=== PATIENT | female | born 1945 | race Asian ===

== ENCOUNTER 2018-11-09 07:43 | Day surgery (SDC) | payer MEDICARE, OTHER ==
[2018-11-09] MEDS ORDERED: SOD CHLORIDE 0.9% 1,000 ML IV (08:00)
[2018-11-09] MEDS: MOXIFLOXACIN 0.5% 3 ML OPH OPER (08:24)
[2018-11-09] MEDS: TROPICAMIDE 1% 15 ML OPH OPER (08:24)
[2018-11-09] MEDS: CYCLOPENTOLATE/PHENYLEPH 2 ML OPH OPER (08:24)
[2018-11-09] MEDS: DICLOFENAC 0.1% 2.5 ML OPH OPER (08:25)
[2018-11-09] MEDS: TETRACAINE 0.5% 4 ML OPH LEFT EYE (10:30)
[2018-11-09] MEDS: LIDOCAINE 4% (MPF) 5 ML INJ INJ (10:30)
[2018-11-09] MEDS ORDERED: PROPOFOL 20 ML (10:40)
[2018-11-09] MEDS ORDERED: hydrALAzine 20 MG INJ IV (11:00)
[2018-11-09] MEDS ORDERED: OXYCODONE/ACETAMINOPHEN (5/325) TAB PO ×2 (11:00)
[2018-11-09] MEDS ORDERED: METOCLOPRAMIDE 10 MG INJ IV (11:00)
[2018-11-09] MEDS ORDERED: DIPHENHYDRAMINE 50 MG INJ IV (11:00)
[2018-11-09] MEDS ORDERED: EPHEDrine SULFATE 50 MG/5 ML SYG IV (11:00)
[2018-11-09] MEDS ORDERED: LABETALOL HCL 20MG INJ IV (11:00)
[2018-11-09] MEDS ORDERED: ONDANSETRON 4 MG INJ IV (11:00)
[2018-11-09] MEDS ORDERED: FENTAnyl 50 MCG/ML VIAL IV ×3 (11:00)
[2018-11-09] MEDS ORDERED: MEPERIDINE 25 MG INJ IV (11:00)
[2018-11-09] MEDS ORDERED: MIDAZOLAM 1 MG/ML 2 ML INJ IV (11:00)
[2018-11-09] MEDS: CEFAZOLIN 1 GM INJ INJ (11:01)
[2018-11-09] MEDS ORDERED: LIDOCAINE 4% (MPF) 5 ML INJ (11:24)
[2018-11-09] MEDS ORDERED: TETRACAINE 0.5% 4 ML OPH (11:24)
[2018-11-09] MEDS ORDERED: NA HYALURONATE/CHONDROITIN 0.5 ML SYG (11:24)
[2018-11-09] MEDS ORDERED: CARBACHOL 0.01% 1.5 ML OPH INJ (11:24)
== END 2018-11-09 12:55 | disposition home or self-care (01) ==
LOC: SDS 07:43
DX: H25.12 Age-related nuclear cataract, left eye (principal); I10 Essential (primary) hypertension
CPT/HCPCS: 66984